=== PATIENT | female | born 1955 | race Caucasian/White ===

== ENCOUNTER 2016-12-06 16:39 | Observation (INO) | payer MEDICAID ==
[~2016-12-06] VITALS: Ht 152.4 cm; Wt 54.1 kg
[2016-12-06 17:43] LABS: DAU SCREEN DISCLAIMER
[2016-12-06] MEDS ORDERED: LORazepam 1MG TABLET PO PRN (19:30)
[2016-12-06] MEDS ORDERED: POLYETHYLENE GLYCOL 17 GM PACKET PO PRN (19:30)
[2016-12-06] MEDS ORDERED: BISACODYL 10 MG SUPP PR PRN (19:30)
[2016-12-06] MEDS ORDERED: ONDANSETRON ODT 4 MG PO PRN (19:30)
[2016-12-06] MEDS ORDERED: ACETAMINOPHEN 325 MG TABLET PO PRN (19:30)
[2016-12-06 19:51] LABS: ASPARTATE AMINO TRANSFERASE 15 U/L (15-37); BLOOD UREA NITROGEN 13 mg/dL (7-18)
[2016-12-06 20:01] LABS: ACETAMINOPHEN < 2 mcg/mL (10-30)
[2016-12-06 21:05] VITALS: BP 110/66
[2016-12-06 21:06] LABS: HCG UR OBC PASS
[2016-12-06] MEDS: NICOTINE 14MG/24 HR PATCH.TD24 TD SCH (21:36)
[2016-12-07 08:12] VITALS: BP 101/67
[2016-12-07] MEDS: SENNA/DOCUSATE TABLET PO SCH (08:41)
[2016-12-07] MEDS: NICOTINE 14MG/24 HR PATCH.TD24 TD SCH (08:42)
[2016-12-07] MEDS: BENZONATATE 100 MG CAPSULE PO SCH ×2 (16:00→20:21)
[2016-12-07] MEDS: GUAIFENESIN 200 MG TABLET PO SCH ×2 (16:27→20:21)
[2016-12-07 19:20] VITALS: BP 111/73
[2016-12-07] MEDS: SODIUM CHLORIDE NASAL SPRAY 45ML BOTTLE NAS SCH (20:20)
[2016-12-08] MEDS: GUAIFENESIN 200 MG TABLET PO SCH ×4 (06:26→20:21)
[2016-12-08 07:51] VITALS: BP 106/67
[2016-12-08] MEDS: SENNA/DOCUSATE TABLET PO SCH (09:00)
[2016-12-08] MEDS: BENZONATATE 100 MG CAPSULE PO SCH ×3 (09:00→20:24)
[2016-12-08] MEDS: SODIUM CHLORIDE NASAL SPRAY 45ML BOTTLE NAS SCH ×2 (09:00→20:21)
[2016-12-08] MEDS: NICOTINE 14MG/24 HR PATCH.TD24 TD SCH (09:17)
[2016-12-08 20:02] VITALS: BP 113/64
[2016-12-09] MEDS: GUAIFENESIN 200 MG TABLET PO SCH ×4 (06:24→20:57)
[2016-12-09 07:59] VITALS: BP 101/66
[2016-12-09] MEDS: SODIUM CHLORIDE NASAL SPRAY 45ML BOTTLE NAS SCH ×2 (09:00→20:58)
[2016-12-09] MEDS: SENNA/DOCUSATE TABLET PO SCH (09:00)
[2016-12-09] MEDS: BENZONATATE 100 MG CAPSULE PO SCH ×3 (09:16→20:57)
[2016-12-09] MEDS: NICOTINE 14MG/24 HR PATCH.TD24 TD SCH (09:16)
[2016-12-09 20:17] VITALS: BP 105/64
[2016-12-10] MEDS: GUAIFENESIN 200 MG TABLET PO SCH ×4 (05:58→21:04)
[2016-12-10 08:00] VITALS: BP 114/77
[2016-12-10] MEDS: SENNA/DOCUSATE TABLET PO SCH (08:25)
[2016-12-10] MEDS: NICOTINE 14MG/24 HR PATCH.TD24 TD SCH (08:25)
[2016-12-10] MEDS: BENZONATATE 100 MG CAPSULE PO SCH ×3 (08:26→21:00)
[2016-12-10] MEDS: SODIUM CHLORIDE NASAL SPRAY 45ML BOTTLE NAS SCH ×2 (08:26→21:06)
[2016-12-10] MEDS: ENOXAPARIN 40 MG/0.4 ML SQ SCH (16:30)
[2016-12-10 19:34] VITALS: BP 102/65
[2016-12-11] MEDS: GUAIFENESIN 200 MG TABLET PO SCH ×4 (06:03→21:14)
[2016-12-11 07:53] VITALS: BP 100/64
[2016-12-11] MEDS: SENNA/DOCUSATE TABLET PO SCH (08:10)
[2016-12-11] MEDS: SODIUM CHLORIDE NASAL SPRAY 45ML BOTTLE NAS SCH ×2 (08:10→21:00)
[2016-12-11] MEDS: NICOTINE 14MG/24 HR PATCH.TD24 TD SCH (08:11)
[2016-12-11] MEDS: BENZONATATE 100 MG CAPSULE PO SCH ×3 (08:11→21:13)
[2016-12-11] MEDS: ENOXAPARIN 40 MG/0.4 ML SQ SCH (16:16)
[2016-12-11 19:55] VITALS: BP 119/71
[2016-12-12] MEDS: GUAIFENESIN 200 MG TABLET PO SCH ×4 (06:15→20:47)
[2016-12-12 08:26] VITALS: BP 104/68
[2016-12-12] MEDS: NICOTINE 14MG/24 HR PATCH.TD24 TD SCH (09:00)
[2016-12-12] MEDS: SENNA/DOCUSATE TABLET PO SCH (09:11)
[2016-12-12] MEDS: SODIUM CHLORIDE NASAL SPRAY 45ML BOTTLE NAS SCH ×2 (09:11→20:47)
[2016-12-12] MEDS: BENZONATATE 100 MG CAPSULE PO SCH ×3 (09:11→20:47)
[2016-12-12] MEDS: ENOXAPARIN 40 MG/0.4 ML SQ SCH (16:20)
[2016-12-12 19:40] VITALS: BP 114/78
[2016-12-13 07:53] VITALS: BP 98/64
[2016-12-13] MEDS: SENNA/DOCUSATE TABLET PO SCH (09:00)
[2016-12-13] MEDS: SODIUM CHLORIDE NASAL SPRAY 45ML BOTTLE NAS SCH ×2 (09:00→21:00)
[2016-12-13] MEDS: BENZONATATE 100 MG CAPSULE PO SCH ×3 (09:55→21:51)
[2016-12-13] MEDS: GUAIFENESIN 200 MG TABLET PO SCH ×4 (09:55→21:51)
[2016-12-13] MEDS: NICOTINE 14MG/24 HR PATCH.TD24 TD SCH (09:56)
[2016-12-13] MEDS: ENOXAPARIN 40 MG/0.4 ML SQ SCH (17:08)
[2016-12-13 20:00] VITALS: BP 99/63
[2016-12-14 07:38] VITALS: BP 119/66
[2016-12-14] MEDS: SODIUM CHLORIDE NASAL SPRAY 45ML BOTTLE NAS SCH ×2 (08:41→20:43)
[2016-12-14] MEDS: SENNA/DOCUSATE TABLET PO SCH (08:42)
[2016-12-14] MEDS: NICOTINE 14MG/24 HR PATCH.TD24 TD SCH (08:42)
[2016-12-14] MEDS: BENZONATATE 100 MG CAPSULE PO SCH ×3 (08:42→20:43)
[2016-12-14] MEDS: GUAIFENESIN 200 MG TABLET PO SCH ×4 (08:42→20:43)
[2016-12-14] MEDS: ENOXAPARIN 40 MG/0.4 ML SQ SCH (16:27)
[2016-12-14 19:20] VITALS: BP 112/63
[2016-12-15] MEDS: GUAIFENESIN 200 MG TABLET PO SCH ×2 (06:00→09:30)
[2016-12-15 07:45] VITALS: BP 106/70
[2016-12-15] MEDS: NICOTINE 14MG/24 HR PATCH.TD24 TD SCH (09:00)
[2016-12-15] MEDS: BENZONATATE 100 MG CAPSULE PO SCH (09:00)
[2016-12-15] MEDS: SODIUM CHLORIDE NASAL SPRAY 45ML BOTTLE NAS SCH ×2 (09:00→20:02)
[2016-12-15] MEDS: SENNA/DOCUSATE TABLET PO SCH (09:00)
[2016-12-15] MEDS: ENOXAPARIN 40 MG/0.4 ML SQ SCH (09:00)
[2016-12-15] MEDS ORDERED: GUAIFENESIN 200 MG TABLET PO PRN (10:00)
[2016-12-15] MEDS ORDERED: BENZONATATE 100 MG CAPSULE PO PRN (10:00)
[2016-12-15 19:40] VITALS: BP 109/69
[2016-12-16 08:00] VITALS: BP 96/61
[2016-12-16] MEDS: SENNA/DOCUSATE TABLET PO SCH (08:28)
[2016-12-16] MEDS: SODIUM CHLORIDE NASAL SPRAY 45ML BOTTLE NAS SCH ×2 (08:28→21:00)
[2016-12-16] MEDS: NICOTINE 14MG/24 HR PATCH.TD24 TD SCH (08:57)
[2016-12-16] MEDS: ENOXAPARIN 40 MG/0.4 ML SQ SCH (08:57)
[2016-12-16 19:30] VITALS: BP 118/70
[2016-12-17 07:55] VITALS: BP 112/70
[2016-12-17] MEDS: NICOTINE 14MG/24 HR PATCH.TD24 TD SCH (08:30)
[2016-12-17] MEDS: ENOXAPARIN 40 MG/0.4 ML SQ SCH (08:30)
[2016-12-17] MEDS: SENNA/DOCUSATE TABLET PO SCH (08:31)
[2016-12-17] MEDS: SODIUM CHLORIDE NASAL SPRAY 45ML BOTTLE NAS SCH (08:31)
[2016-12-17] MEDS ORDERED: NICO1PAT4 TD (10:51)
[2016-12-17] MEDS ORDERED: GUAI5SYR PO (10:51)
[2016-12-17] MEDS ORDERED: SODI44SP NAS (10:51)
[2016-12-17] MEDS ORDERED: GUAIFENESIN/DM 100-10MG, 5ML UDC PO PRN (11:00)
== END 2016-12-17 11:07 ==
LOC: ED 19:16 → EDIP 19:20 → 3E 20:45
PROVIDERS: ADMIT Family Medicine; ATTEND Family Medicine
DX: R45.851 Suicidal ideations (principal); E03.9 Hypothyroidism, unspecified; F32.9 Major depressive disorder, single episode, unspecified; E44.1 Mild protein-calorie malnutrition; F17.200 Nicotine dependence, unspecified, uncomplicated; Z59.0 Homelessness; Z82.49 Family history of ischemic heart disease and other diseases of the circulatory system
CPT/HCPCS: 36415; 80053; 80307; 80329; 81025; 85025; 96372; 99285; G0378; J1650; G0480

== ENCOUNTER 2017-06-19 17:23 | Emergency (ER) | payer MEDICAID ==
[~2017-06-19] VITALS: Ht 152.4 cm; Wt 55.0 kg
[~2017-06-19 17:23] MED LIST: GUAI5SYR PO; NICO-486 TD; SODI44SP NAS
[2017-06-19 17:36] VITALS: BP 118/63
[2017-06-19] MEDS ORDERED: BACITRACIN OINT 500U/GM, 15 GM TP ONE (18:30)
[2017-06-19 18:39] LABS: HEMATOCRIT 40.5 % (34.6-47.8); HEMOGLOBIN 13.1 g/dL (11.7-16.4); WHITE BLOOD COUNT 10.7 x10^3/uL (3.4-10)
[2017-06-19 18:49] LABS: ASPARTATE AMINO TRANSFERASE 18 U/L (15-37); BLOOD UREA NITROGEN 9 mg/dL (7-18)
[2017-06-19] MEDS ORDERED: OXYcodone/APAP 5/325MG TABLET PO ONE (20:00)
== END 2017-06-19 20:08 | disposition home or self-care (01) ==
LOC: ED 19:36
DX: B85.1 Pediculosis due to Pediculus humanus corporis (principal); E03.9 Hypothyroidism, unspecified
CPT/HCPCS: 36415; 71010; 80053; 85025; 99285